=== PATIENT | male | born 1965 | race Caucasian/White ===

== ENCOUNTER 2019-02-09 18:43 | Emergency (ER) | payer BC ==
[2019-02-09 19:44] VITALS: BP 144/88; PULSE 74; RESP 18; TEMP 98.2; O2SAT 100
--- NOTE | 2019-02-09 20:46 | C.PDOC ---
History Of Present Illness Patient is a 53 year old male who presents to the ED c/o left shoulder pain that has been present for the past week. He states that he was lifting heavy stuff at work and developed pain that has not gotten better since that time. He denies any weakness, numbness, or tingling. Patient denies any chest pain or SOB. Time Seen by Provider: 02/09/19 19:17 Chief Complaint (Nursing): Upper Extremity Problem/Injury History Per: Patient History/Exam Limitations: no limitations Onset/Duration Of Symptoms: Days (one week) Current Symptoms Are (Timing): Still Present Quality: "Pain" Recent travel outside of the [place]: No Additional History Per: Patient Past Medical History Reviewed: Historical Data, Nursing Documentation, Vital Signs Vital Signs: Last Vital Signs Temp 98.2 F 02/09/19 19:43 Pulse 74 02/09/19 19:43 Resp 18 02/09/19 19:43 BP 144/88 02/09/19 19:43 Pulse Ox 100 02/09/19 19:43 Primary Care Provider: Giancarlo Cosby Medical History PMH: Asthma, HTN (off meds a year ago), Hypercholesterolemia Surgical History: No Surg Hx Family History: States: No Known Family Hx - Social History Hx Alcohol Use: Yes Hx Substance Use: No - Immunization History Hx Tetanus Toxoid Vaccination: Yes Hx Influenza Vaccination: No Hx Pneumococcal Vaccination: No Review Of Systems Except As Marked, All Systems Reviewed And Found Negative. Musculoskeletal: Positive for: Shoulder Pain (left shoulder) Neurological: Negative for: Weakness, Numbness, Other (tingling) Physical Exam - Physical Exam Appears: Non-toxic, No Acute Distress Skin: Normal Color, No Diaphoretic Head: Atraumatic, Normacephalic Eye(s): bilateral: Normal Inspection Neck: Normal, No Midline Cervical Tenderness, No Paracervical Tenderness Chest: No Deformity, No Tenderness Cardiovascular: Rhythm Regular, No Murmur Respiratory: Normal Breath Sounds, No Rales, No Rhonchi, No Wheezing Extremity: Tenderness (diffuse tenderness of left shoulder, pain with abduction of arm), No Deformity, No Swelling, Other (No ecchymosis or deformity) Extremity: Bilateral: Atraumatic Neurological/Psych: Oriented x3, Normal Speech, Normal Cognition ED Course And Treatment O2 Sat by Pulse Oximetry: 100 (on RA) Pulse Ox Interpretation: Normal Progress Note: Plan: Xray Lft Shoulder. Xray normal. Patient was discharged home with pain medications and was advised to follow up with Orthopedist . Disposition - Disposition Referrals: Sascha Arauz MD [Staff Provider] - Disposition: HOME/ ROUTINE Disposition Time: 21:03 Condition: STABLE Additional Instructions: Follow up with PMD and Orthopedist within 1-2 days. Return to ED if feel worse. Prescriptions: Lidocaine 5% [Lidoderm] 1 patch TP DAILY #30 patch Ibuprofen [Motrin Tab] 600 mg PO Q8 #30 tab traMADol [Ultram] 50 mg PO Q6 #20 tab Instructions: Shoulder Pain (DC) Forms: [facility] (Swiss), Work Excuse - Clinical Impression Clinical Impression: Shoulder pain, left - PA / MEDICAL RECORDS AUDITOR / Resident Statement MD/DO has reviewed & agrees with the documentation as recorded. - Scribe Statement The provider has reviewed the documentation as recorded by the Becky Courtney All medical record entries made by the Mashaibadam were at my direction and personally dictated by me. I have reviewed the chart and agree that the record accurately reflects my personal performance of the history, physical exam, medical decision making, and the department course for this patient. I have also personally directed, reviewed, and agree with the discharge instructions and disposition.
--- NOTE | 2019-02-10 10:25 | RAD ---
PROCEDURE: Radiographs of the Left Shoulder, three views HISTORY: pain COMPARISON: None available FINDINGS: BONES: No acute displaced fracture. The distal clavicle and underlying ribs appear intact. JOINTS: No acute dislocation. Mild glenohumeral joint space narrowing. Acromioclavicular arthropathy. SOFT TISSUES: Soft tissues appear unremarkable. No evidence of radiopaque foreign body. IMPRESSION: No acute displaced fracture or dislocation evident. If symptoms persist or if there is continued clinical concern, x-ray follow-up in 7-10 days should be considered. Mild degenerative changes.
== END 2019-02-09 21:14 | disposition home or self-care (01) ==
LOC: C.ER 18:43
DX: M25.512 Pain in left shoulder (principal)